=== PATIENT | male | born 1975 | race Hispanic/Latino ===

== ENCOUNTER 2024-09-14 17:43 | Emergency (ER) | payer SELFPAY ==
[~2024-09-14] VITALS: Ht 165.1 cm; Wt 81.6 kg
--- NOTE | 2024-09-14 17:55 | ERN ---
ED Note History of Present Illness Stated Complaint: CHEST PAIN,SOB,HX OF HEART ATTACKS Chief Complaint: Chest Pain Time Seen by MD: 17:50 Dictation: PATIENT IS A 49-YEAR-OLD MALE COMING IN WITH DIFFUSE ANTERIOR CHEST PAIN NONRADIATING ONSET SEVERAL HOURS PRIOR TO ARRIVAL. NO NAUSEA VOMITING NO JAW PAIN NO ARM PAIN NO BACK PAIN. HE STATES HE HAS HAD A HISTORY OF PRIOR STROKE AND WAS SEEN AT [facility]. SAID HE DOES NOT HAVE A PRIMARY CARE DOCTOR USES EMERGENCY ROOMS FOR HEALTH CARE. Allergies: Coded Allergies: No Known Allergies (Unverified Allergy, Unknown, 06/19/23) Past Medical History Past Medical History: No Pertinent History Surgical History: None RN Note Reviewed/Agreed w/PFSH: Yes Review of System Dictation CONSTITUTIONAL: NEGATIVE EXCEPT FOR HPI HEAD/FACE: NEGATIVE EXCEPT FOR HPI EENT: NEGATIVE EXCEPT FOR HPI RESPIRATORY: NEGATIVE EXCEPT FOR HPI CHEST PAIN GASTROINTESTINAL/ABDOMINAL: NEGATIVE EXCEPT FOR HPI GENITOURINARY: NEGATIVE EXCEPT FOR HPI MUSCULOSKELETAL: NEGATIVE EXCEPT FOR HPI INTEGUMENTARY: NEGATIVE EXCEPT FOR HPI NEUROLOGICAL/PSYCH: NEGATIVE EXCEPT FOR HPI HEMATOLOGIC/LYMPHATIC: NEGATIVE EXCEPT FOR HPI ALL SYSTEMS NEGATIVE, EXCEPT NOTED ABOVE. 13 POINT REVIEW OF SYSTEMS ASSESSED AND ALL NEGATIVE EXCEPT FOR ABOVE. Initial Vital Sign VS Vital Signs Date Time Temp Pulse Resp B/P (MAP) Pulse Ox O2 Delivery O2 Flow Rate FiO2 09/14/24 17:51 98.1 77 16 134/97 98 Room Air 0 09/14/24 19:49 21 Physical Exam Dictation VITAL SIGNS REVIEWED GENERAL APPEARANCE: ALERT, ORIENTED X 3, NO ACUTE DISTRESS, WELL DEVELOPED, NOURISHED. HEAD AND FACE: NON-TRAUMATIC. EYES: PERRL, PINK CONJUNCTIVAS, EYELID NO TRAUMA, ANTERIOR CHAMBER WITH ARCUS SENILIS. EARS: PINNAS INTACT AND NO SIGNS OF TRAUMA OR ERYTHEMA EAR CANALS CLEAR AND NO DISCHARGE TM NO ERYTHEMA NOSE: NO DISCHARGE, NO BLEEDING. OROPHARYNX: MOUTH NORMAL, TONGUE PINK, PHARYNX CLEAR,NO ERYTHEMA, TONSILS NO EXUDATES, NO ABSCESSES NOTED, MUCOUS MEMBRANE MOIST NECK: SUPPLE, NON-TENDER, NO THYROMEGALY, NO MASSES, NO JVD, NO BRUITS BREAST:DEFERRED CHEST:NO TENDERNESS, NO CREPITUS, NO PARADOXICAL MOVEMENT, NO RETRACTIONS LUNGS:CLEAR, WELL-VENTILATED, SYMMETRIC, NO RALES, NO WHEEZING, NO RHONCHI, NO STRIDOR, GOOD BREATH SOUNDS BILATERALLY HEART: REGULAR RATE, REGULAR RHYTHM, NO MURMUR, NO GALLOPS VASCULAR: NO PERIPHERAL EDEMA, ABDOMEN: SOFT, POSITIVE BOWEL SOUNDS, NONDISTENDED, NO GUARDING, NONTENDER, NO REBOUND, NO MASSES NO HEPATOMEGALY, NO SPLENOMEGALY, NO FLORENCE'S SIGN, NO HERNIAS. RECTAL: DEFERRED GENITAL: DEFERRED NEUROLOGICAL: NORMAL SPEECH, MOTOR FUNCTION INTACT, SENSORY FUNCTION INTACT MUSCULOSKELETAL: NECK NONTENDER, FULL RANGE OF MOTION, BACK NONTENDER, FULL RANG E OF MOTION, EXTREMITIES: NONTENDER, FULL RANGE OF MOTION SKIN: COLOR PINK, DRY, NO TURGOR, NO RASH, NO LACERATIONS, NO ABRASIONS, NO CONTUSIONS. LYMPHATIC: DEFERRED Results (Laboratory/Radiology) Laboratory/Radiology Laboratory Tests Test 09/14/24 18:10 White Blood Count 6.3 K/uL (4.8-10.8) Red Blood Count 4.77 MIL/uL (4.50-6.20) Hemoglobin 15.0 g/dL (14.0-18.0) Hematocrit 43.2 % (42-54) Mean Corpuscular Volume 90.6 fL (79-99) Mean Corpuscular Hemoglobin 31.4 pg (27.0-33.0) Mean Corpuscular Hemoglobin Concent 34.7 g/dL (32.0-36.0) Red Cell Distribution Width 12.9 % (11.0-15.5) Platelet Count 197 K/uL (130-400) Mean Platelet Volume 10.6 fL (7.5-10.5) H Immature Granulocyte % (Auto) 0.8 % (0-1) Neutrophils (%) (Auto) 52.1 % (40.0-77.0) Lymphocytes (%) (Auto) 35.6 % (21.0-51.0) Monocytes (%) (Auto) 8.0 % (3.0-13.0) Eosinophils (%) (Auto) 3.2 % (0.0-8.0) Basophils (%) (Auto) 0.3 % (0.0-5.0) Neutrophils # (Auto) 3.3 K/uL (1.8-7.7) Lymphocytes # (Auto) 2.2 K/uL (1.0-4.8) Monocytes # (Auto) 0.5 K/uL (0.1-1.0) Eosinophils # (Auto) 0.20 K/uL (0.00-0.70) Basophils # (Auto) 0.02 K/uL (0.00-0.20) Absolute Immature Granulocyte (auto 0.05 K/uL (0-1) Nucleated Red Blood Cells 0.0 % (0.0-0.19) Sodium Level 143 mmol/L (136-145) Potassium Level 4.1 mmol/L (3.5-5.1) Chloride Level 107 mmol/L (101-111) Carbon Dioxide Level 31 mmol/L (21-32) Blood Urea Nitrogen 18 mg/dL (7-18) Creatinine 0.9 mg/dL (0.5-1.3) Glomerular Filtration Rate Calc 105 mL/min (>90) Random Glucose 117 mg/dL (70-105) H Total Calcium 8.3 mg/dL (8.5-10.1) L Troponin I High Sensitivity 4 ng/L (4-75) Labs Reviewed?: Yes EKG Comment: EKG NORMAL SINUS RHYTHM/HEART RATE 73/AXIS NORMAL/NO ECTOPY ED Course ED Course Orders Procedure Category Date Status Time Cbc With Differential LAB 09/14/24 Complete 17:52 Troponin I High LAB 09/14/24 Complete Sensitivity 17:52 12 Lead Ekg Tracing- EKG 09/14/24 Logged Technical 17:52 Basic Metabolic Panel LAB 09/14/24 Complete 17:52 Occult Blood Stool LAB 09/14/24 In Process Single Only 19:43 Vital Signs Date Time Temp Pulse Resp B/P (MAP) Pulse Ox O2 Delivery O2 Flow Rate FiO2 09/14/24 19:49 98.2 73 16 116/75 97 Room Air* 0 21 09/14/24 17:51 98.1 77 16 134/97 98 Room Air 0 1945/PATIENT NOW STATES HE IS HAVING RECTAL BLEEDING HE HAS HAD FOR TWO DAYS. STATES HE HAS ALSO BEEN CONSTIPATED DENIES ANY ABDOMINAL PAIN NO NAUSEA VOMITING. NO HISTORY OF IBS, CONSTIPATION OR HEMORRHOIDS.2009/PATIENT HAD GROSSLY POSITIVE STOOL. HE WILL BE PROVIDED PROTONIX, METAMUCIL AND BE REFERRED TO GASTROENTEROLOGY FOR NEXT WEEK. REVIEW OF LABS SH OW H&H IS NORMAL WITH HEMOGLOBIN 15.3. PATIENT STATES HE HAS BEEN CONSTIPATED. SPOKE TO AT BEDSIDE REGARDING PATIENT'S CONDITION AND MY TREATMENT PLAN. SHE AGREED TO PROCEED. HEART Score Response (Comments) Value History: Low suspicion (0) 0 Age: 45-65yrs (+1) 1 Risk Factors: 1-2 risk factors (+1) 1 Initial Troponin: Normal limit (0) 0 Total 2 Medical Decision Making MDM MEDICAL DECISION-MAKING BASED ON CARDIAC WORKUP FOR CHEST PAIN EKG NORMAL LABS NORMAL PATIENT DISCHARGED HOME TO FOLLOW UP WITH HIS DOCTOR IN [place] DX & DISP Disposition: Discharge Departure Impression: Primary Impression: Atypical chest pain Additional Impressions: Panic attack, Constipation, Rectal bleed Condition: Stable Scripts Psyllium Husk (with Sugar) (Metamucil Powder) 3.4 Gram/12 Gram Powder 575 GM PO BID for CONSTIPATION for 10 Days, #1 BOTTLE 1 TSP IN 8 OZ OF WATER TWICE A DAY FOR THE NEXT 10 DAYS. Prov: SHRUTHI CARRANZA NP 09/14/24 Pantoprazole Sodium (Protonix) 40 Mg Tablet.dr 1 TAB PO DAILY for 30 Days, #30 TAB 0 Refills Prov: SHRUTHI CARRANZA NP 09/14/24 Additional Instructions: FOLLOW-UP WITH PRIMARY CARE PROVIDER IN 1 TO 2 DAYS. TAKE MEDICATIONS DIRECTED HERE IN THE EMERGENCY ROOM. OKAY TO CONTINUE HOME MEDICATIONS UNLESS OTHERWISE DISCUSSED DURING YOUR VISIT IN THE EMERGENCY ROOM TODAY. RETURN TO YOUR NEAREST EMERGENCY ROOM IF SYMPTOMS WORSEN OR IF THERE IS NO IMPROVEMENT. CALL 911 IF YOU NEED IMMEDIATE ASSISTANCE. TAKE TYLENOL OR MOTRIN [id number] NEEDED AND IF NO CONTRAINDICATIONS ARE PRESENT. INCREASE ORAL HYDRATION. A WOUND CULTURE OR URINE CULTURE WAS ORDERED HERE IN THE EMERGENCY ROOM DEPARTMENT PLEASE FOLLOW-UP WITH PRIMARY CARE PROVIDER AND ADVISE THEM TO GET REPEAT PORTS FROM OUR FACILITY. IF YOU HAD ANY MEY WRAP/SPLINTS THAT WERE APPLIED HERE, PLEASE DO NOT REMOVE THEM UNTIL YOU SEE YOUR PRIMARY CARE OR SPECIALTY. SEE YOUR PRIMARY CARE DOCTOR FOR FOLLOW UP. TAKE METAMUCIL DIRECTED TWICE A DAY. TAKE PROTONIX DIRECTED DAILY. FOLLOW UP WITH MANAGER FLOAT IN THE NEXT 2-3 DAYS, CALL FOR AN APPOINTMENT. Referrals: SELF,REFERRAL (PCP) KARINA THOMAS MD I have reviewed the case, and I agree with, Diagnosis and Plan SHRUTHI CARRANZA NP Sep 14, 2024 17:55
[2024-09-14 18:16] LABS: BASOPHILS # (AUTO) 0.02 K/uL (0.00-0.20); BASOPHILS % (AUTO) 0.3 % (0.0-5.0); EOSINOPHILS % (AUTO) 3.2 % (0.0-8.0); HEMATOCRIT 43.2 % (42-54); IMMATURE GRANULOCYTE ABSOLUTE 0.05 K/uL (0-1); LYMPHOCYTES # (AUTO) 2.2 K/uL (1.0-4.8); LYMPHOCYTES % (AUTO) 35.6 % (21.0-51.0); MEAN CORPUSCULAR HEMOGLOBIN 31.4 pg (27.0-33.0); MEAN CORPUSCULAR HGB CONC 34.7 g/dL (32.0-36.0); MEAN CORPUSCULAR VOLUME 90.6 fL (79-99); MONOCYTES # (AUTO) 0.5 K/uL (0.1-1.0); NEUTROPHILS # (AUTO) 3.3 K/uL (1.8-7.7); NEUTROPHILS % (AUTO) 52.1 % (40.0-77.0); PLATELET COUNT (AUTO) 197 K/uL (130-400); RED BLOOD CELL COUNT(AUTO) 4.77 MIL/uL (4.50-6.20); RED CELL DISTRIBUTION WIDTH 12.9 % (11.0-15.5); WHITE BLOOD COUNT (AUTO) 6.3 K/uL (4.8-10.8)
[2024-09-14 18:23] LABS: CREATININE 0.9 mg/dL (0.5-1.3); POTASSIUM 4.1 mmol/L (3.5-5.1)
--- NOTE | 2024-09-14 19:33 | NUR ---
PT CARE ASSUMED AT THIS TIME
[2024-09-14] MEDS ORDERED: PANT40TA PO (20:11)
[2024-09-14] MEDS ORDERED: PSYL575P22 PO (20:11)
[2024-09-14 20:49] VITALS: BP 120/72; PULSE 70; RESP 16; TEMP 98; O2SAT 98
[2024-09-14] MEDS: PANTOPrazole 40 MG TAB DR PO SCH (20:57)
--- NOTE | 2024-09-15 06:54 | EKG ---
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
== END 2024-09-14 20:58 | disposition home or self-care (01) ==
LOC: EDH 17:43
DX: R07.89 Other chest pain (principal); F41.0 Panic disorder [episodic paroxysmal anxiety]; K59.00 Constipation, unspecified; K62.5 Hemorrhage of anus and rectum
CPT/HCPCS: 36415; 80048; 82270; 84484; 85025; 93005; 99284